=== PATIENT | female | born 1950 | race Caucasian/White ===

== ENCOUNTER → 2020-02-01 | Outpatient (CLI) | payer MEDICARE, OTHER ==
--- NOTE | 2020-02-01 14:46 | CT ---
EXAMINATION TYPE: CT chest w con DATE OF EXAM: 02/01/2020 COMPARISON: None HISTORY: Upper Chest pressure CT DLP: 214.4 mGycm, Automated exposure control for dose reduction was used. CONTRAST: Performed injected with 100 mL of Isovue 300. TECHNIQUE: Axial images were obtained at 5 mm thick sections. Reconstructed images are reviewed on t he computer in the coronal plane. FINDINGS: Portion of the thyroid visualized is normal. There is some linear thickening with a thickness of 0.5 cm in the posterior right upper lobe. Series 4 image 15. There is a lobular density in the periphery of the right midlung. The largest lobule measures 0 cm. T his may be associated with a vascular malformation. Monitoring is recommended. No enlarged mediastinal or hilar adenopathy is evident. The ascending aorta diameter at the level o f the main pulmonary artery is 3.8 cm. The main pulmonary artery diameter at the bifurcation is 2.[address] sections are obtained through the upper abdomen. Abdomen is essentially unremarkable. IMPRESSIONS: 1. 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 Neoplasm is considered less likely. Short-term follow-up in 3 months is recommended.
== END | disposition home or self-care (01) ==
LOC: RADCTMAIN 10:41
PROVIDERS: ATTEND Internal Medicine Critical Care Medicine
DX: I28.8 Other diseases of pulmonary vessels (principal); Z88.0 Allergy status to penicillin
CPT/HCPCS: 82565; 84520; 71260; 36415; Q9967

== ENCOUNTER → 2020-02-29 | Outpatient (CLI) | payer MEDICARE, OTHER | END | disposition home or self-care (01) | LOC: CPPFTMAIN 08:41 | PROVIDERS: ATTEND Internal Medicine Critical Care Medicine | DX: I28.8 Other diseases of pulmonary vessels (principal); R94.2 Abnormal results of pulmonary function studies; Z87.09 Personal history of other diseases of the respiratory system | CPT/HCPCS: 94060; 94726; 94729 ==

== ENCOUNTER → 2020-05-23 | Outpatient (CLI) | payer MEDICARE, OTHER ==
--- NOTE | 2020-05-24 17:26 | XR ---
EXAMINATION TYPE: XR ribs LT w pa chest x-ray DATE OF EXAM: 05/23/2020 CLINICAL HISTORY: R09.1. Left lower rib pain. History of rib fractures. TECHNIQUE: Frontal view of the chest and dedicated views of the left ribs obtained. COMPARISON: CT chest 02/21/2020. Chest radiograph 01/17/2020. FINDINGS: Embolization coils seen over the right mid lung and superior mediastinum at the level of t he aortic arch. The cardiomediastinal silhouette is within normal limits for size. Pulmonary vasculat ure is normal. There is no focal air space opacity, pleural effusion, or pneumothorax seen. No acute osseous abnormality, including no evidence of displaced rib fracture. IMPRESSION: 1. No evidence of displaced rib fractures. 2. No acute cardiopulmonary process.
== END | disposition home or self-care (01) ==
LOC: RAD 16:27
PROVIDERS: ATTEND Family Medicine
DX: R09.1 Pleurisy (principal)